=== PATIENT | female | born 1960 | race American Indian/Alaskan Native ===

== ENCOUNTER 2018-01-02 09:30 | Outpatient (CLI) | payer OTHER ==
--- NOTE | 2018-01-02 11:13 | Cat Scan Report ---
CT abdomen and pelvis without contrast: Uterine fibroids. Transverse images are obtained from lower chest to the ischium. Coronal and sagittal 2-D reformatted images included. The visualized lung bases are clear. The gallbladder appears contracted but the abdominal and retroperitoneal organs are not otherwise remarkable. The unopacified bowel and mesentery appear normal. The appendix is visualized. There is a 9.9 cm cystic mass in the mid and superior pelvis which is generally midline in location. The uterus appears enlarged measuring approximately 12.3 cm and there is a small calcification in the lower uterus. The left ovary cannot be clearly distinguished. The right ovary is thought to be located inferiorly and posteriorly and within normal size. No free fluid identified. Impressions: 1. Probable large left ovarian cyst. 2. Uterine enlargement most likely due to fibroids. Recommendation: Correlation with ultrasound or MR scan recommended to confirm anatomy.
== END 2018-01-02 09:31 | disposition home or self-care (01) ==
LOC: CT 09:30
PROVIDERS: ATTEND Hospitalist
DX: R14.0 Abdominal distension (gaseous) (principal); D25.9 Leiomyoma of uterus, unspecified; Z91.011 Allergy to milk products
CPT/HCPCS: 74176